=== PATIENT | female | born 2000 | race American Indian/Alaskan Native ===

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

== ENCOUNTER 2020-05-31 17:25 | Emergency (ER) | payer MEDICAID ==
[2020-05-31 18:05] VITALS: BP 122/67; PULSE 110
--- NOTE | 2020-05-31 18:23 | EDM.PDOC ---
ED HPI GENERAL MEDICAL PROBLEM - General Chief Complaint: Bite:Animal, Insect Stated Complaint: SPIDER BITE ON LT LEG Time Seen by Provider: 05/31/20 18:05 Source of Information: Reports: Patient, Old Records, RN History Limitations: Reports: No Limitations - History of Present Illness INITIAL COMMENTS - FREE TEXT/NARRATIVE: 19 yo NA female has a lesion on the lateral left leg for a few days. She has not been seen for this. Attributes it to a spider bite. Has only one of these lesions. Had something similar in the past. 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) Left Lower Leg Pain Score (Numeric/FACES): 7 - Related Data Allergies Allergy/AdvReac Type Severity Reaction Status Date / Time No Known Allergies Allergy Verified 05/31/20 18:05 Home Meds: Home Meds NK [No Known Home Meds] 07/10/17 [History] Past Medical History - Past Health History Medical/Surgical History: Denies 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: , 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 Below) 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: PID - Infectious Disease History Infectious Disease History: Reports: None Social & Family History - Family History Family Medical History: Noncontributory - Tobacco Use Smoking Status *Q: Current Every Day Smoker Years of Tobacco use: 2 Packs/Tins Daily: 0.5 - Caffeine Use Caffeine Use: Reports: Coffee, Energy Drinks, Soda - Recreational Drug Use Recreational Drug Use: No ED ROS GENERAL - Review of Systems Review Of Systems: See Below Constitutional: Reports: No Symptoms Skin: Reports: Erythema (surrounding lesion), Wound (central pustule L leg.) Neurological: Reports: No Symptoms ED EXAM, ANIMAL BITE - Physical Exam Exam: See Below Exam Limited By: No Limitations General Appearance: Alert, WD/WN, No Apparent Distress Extremities: Normal Inspection Neurological: Alert, Oriented, CN II-XII Intact, Normal Cognition, No Motor/Sensory Deficits Skin Exam: Normal Color, Warm/Dry, Other (? pustule centrally to the lateral L calf with some surrounding erythema. Suspect MRSA.) Lymphadenopathy: Bilateral: No Adenopathy Course - Vital Signs Last Recorded V/S: Last Vital Signs Temp 36.7 C 05/31/20 18:00 Pulse 110 H 05/31/20 18:00 Resp 18 05/31/20 18:00 BP 122/67 05/31/20 18:00 Pulse Ox 98 05/31/20 18:00 Departure - Departure Time of Disposition: 18:25 Disposition: Home, Self-Care 01 Condition: Good Clinical Impression: MRSA (methicillin resistant Staphylococcus aureus) infection - Discharge Information *PRESCRIPTION DRUG MONITORING PROGRAM REVIEWED*: No *COPY OF PRESCRIPTION DRUG MONITORING REPORT IN PATIENT TERE: No Instructions: MRSA Infection, Self-Care, Adult Referrals: PCP,None [Primary Care Provider] - Additional Instructions: Wash area with soap and water two or three times daily. Keep warm complexes on area. Take the TMP/SMZ every 12 hrs for a week. Recheck in the clinic with your provider in about 3 days. Sepsis Event Note (ED) - Evaluation Sepsis Screening Result: No Definite Risk - Focused Exam Vital Signs: Vital Signs Temp Pulse Resp BP Pulse Ox 05/31/20 18:00 36.7 C 110 H 18 122/67 98
== END 2020-05-31 18:33 | disposition home or self-care (01) ==
LOC: JP.ED 17:25
DX: A49.02 Methicillin resistant Staphylococcus aureus infection, unspecified site (principal); F17.210 Nicotine dependence, cigarettes, uncomplicated
CPT/HCPCS: 99283

== ENCOUNTER 2020-06-23 06:28 | Emergency (ER) | payer MEDICAID ==
[2020-06-23 06:46] VITALS: BP 148/91; PULSE 122
[2020-06-23] MEDS ORDERED: Amoxicillin/Clavulanate K 875-125 MG Tab PO ONE (06:56)
[2020-06-23] MEDS ORDERED: Bacitracin Oint 1 GM U/D Packet TOP ONE (07:36)
--- NOTE | 2020-06-23 07:43 | EDM.PDOC ---
ED HPI GENERAL MEDICAL PROBLEM - General Chief Complaint: Bite:Animal, Insect Stated Complaint: DOG BITE Time Seen by Provider: 06/23/20 07:00 Source of Information: Reports: Patient, Old Records, RN History Limitations: Reports: No Limitations - History of Present Illness INITIAL COMMENTS - FREE TEXT/NARRATIVE: 19 yo NA female presents after being bitten on the R forearm this morning by a friend's dog. She is not certain about the dog's vaccination status or if the dog has ever bitten anyone before. Her last tetanus was this past 12/2019. She has no allergies. 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 Pain Score (Numeric/FACES): 9 - Related Data Allergies Allergy/AdvReac Type Severity Reaction Status Date / Time No Known Allergies Allergy Verified 06/23/20 06:32 Home Meds: Home Meds Amoxicillin/Potassium Clav [Augmentin 875-125 Tablet] 1 each PO Q12H #5 tablet 06/23/20 [Rx] Past Medical History - Past Health History Medical/Surgical History: Denies Medical/Surgical History RN MEDICARE History: Reports: , Other (See Below) Other RN MEDICARE History: PID - Infectious Disease History Infectious Disease History: Reports: None Social & Family History - Family History Family Medical History: Noncontributory - Tobacco Use Smoking Status *Q: Current Every Day Smoker Years of Tobacco use: 2 Packs/Tins Daily: 1 - Caffeine Use Caffeine Use: Reports: Coffee, Energy Drinks, Soda, Tea - Recreational Drug Use Recreational Drug Use: Yes Drug Use in Last 12 Months: No Recreational Drug Type: Reports: Marijuana/Hashish Recreational Drug Use Frequency: Not Used In Over 6 Months ED ROS GENERAL - Review of Systems Review Of Systems: Comprehensive ROS is negative, except as noted in HPI. Constitutional: Reports: No Symptoms Musculoskeletal: Reports: No Symptoms Skin: Reports: Wound (dog bite/laceration R forearm) Neurological: Reports: No Symptoms ED EXAM, ANIMAL BITE - Physical Exam Exam: See Below Exam Limited By: No Limitations General Appearance: Alert, WD/WN, No Apparent Distress Neurological: Alert, Oriented, CN II-XII Intact, Normal Cognition, No Motor/ Sensory Deficits Psychiatric: Normal Affect, Normal Mood Skin Exam: Normal Color, Other (laceration to the lateral R forearm(5 cm) and a smaller one to the underside of her forearm(1.0 cm), abrasion/scratch to the R lateral abdomen. ) ED ANIMAL BITE PROCEDURES - Laceration/Wound Repair Right Lateral Distal Arm Lac/Wound Length In cm: 5 Appearance: Subcutaneous, Linear, Mildly Contaminated Distal NVT: Neuro & Vascular Intact, No Tendon Injury Anesthetic Type: Local Local Anesthesia - Lidocaine (Xylocaine): 1% Plain (5 ml) Local Anesthetic Volume: 5cc Skin Prep: Saline Saline Irrigation (cc's): 100 Exploration/Debridement/Repair: Wound Explored, Moderate Debridement Closed With: Sutures Suture Size: 5-0 # of Sutures: 7 Suture Type: Prolene, Interrupted, Mattress Drain Placement: No Sterile Dressing Applied: Nurse Tetanus Status Addressed: Yes Complications: No Right Anterior Distal Arm Lac/Wound Length In cm: 1 Appearance: Subcutaneous, Irregular, Mildly Contaminated Distal NVT: Neuro & Vascular Intact, No Tendon Injury Anesthetic Type: Local Local Anesthesia - Lidocaine (Xylocaine): 1% Plain Local Anesthetic Volume: 3cc Skin Prep: Saline Saline Irrigation (cc's): 20 Exploration/Debridement/Repair: Wound Explored Closed With: Sutures Suture Size: 5-0 # of Sutures: 4 Suture Type: Prolene, Interrupted, Simple Drain Placement: No Sterile Dressing Applied: Nurse Tetanus Status Addressed: Yes Complications: No Course - Vital Signs Text/Narrative:: Augmentin 875 mg po given Last Recorded V/S: Last Vital Signs Temp 36.7 C 06/23/20 06:40 Pulse 122 H 06/23/20 06:40 Resp 16 06/23/20 06:40 BP 148/91 H 06/23/20 06:40 Pulse Ox 97 06/23/20 06:40 - Orders/Labs/Meds Orders: Active Orders 24 hr Category Date Time Status Bacitracin [Bacitracin Oint 1 GM] Med 06/23/20 07:36 Once 1 dose TOP ONETIME ONE Medication Orders Bacitracin (Bacitracin Oint 1 Gm) 1 dose TOP ONETIME ONE Stop: 06/23/20 07:37 Last Admin: 06/23/20 07:36 Dose: 1 dose Documented by: [id number] Meds: Medications Generic Name Dose Route Start Last Admin Trade Name Opal PRN Reason Stop Dose Admin Bacitracin 1 dose 06/23/20 07:36 06/23/20 07:36 Bacitracin Oint 1 Gm TOP 06/23/20 07:37 1 dose ONETIME ONE Administration Discontinued Medications Generic Name Dose Route Start Last Admin Trade Name Opal PRN Reason Stop Dose Admin Amoxicillin/Clavulanate Potassium 1 tab 06/23/20 06:56 06/23/20 07:37 Augmentin 875 Mg/125 Mg PO 06/23/20 06:57 1 tab ONETIME ONE Administration Lidocaine HCl 5 ml 06/23/20 06:58 06/23/20 07:37 Xylocaine-Mpf 1% INJECT 06/23/20 06:59 5 ml ONETIME ONE Administration Departure - Departure Time of Disposition: 08:00 Disposition: Home, Self-Care 01 Condition: Good Clinical Impression: Dog bite of right forearm Qualifiers: Encounter type: initial encounter Qualified Code(s): S51.851A - Open bite of right forearm, initial encounter; W54.0XXA - Bitten by dog, initial encounter - Discharge Information *PRESCRIPTION DRUG MONITORING PROGRAM REVIEWED*: No *COPY OF PRESCRIPTION DRUG MONITORING REPORT IN PATIENT TERE: No Prescriptions: Amoxicillin/Potassium Clav [Augmentin 875-125 Tablet] 1 each PO Q12H #5 tablet Instructions: Animal Bite, Adult, [id number] Referrals: PCP,None [Primary Care Provider] - Additional Instructions: Take your Augmentin every 12 hrs with food until gone. Clean your wound twice daily with soap and water, dry, and apply antibiotic and a new dressing. Recheck status of your wound with your doctor in 2 days. Stitches out in a week. Take acetaminophen up to 1000 mg every 6 hrs as needed for pain relief. You will need to make sure your friend's dog is up to date on its rabies vaccinations. If not the dog needs to be confined for 2 weeks and if it gets ill during that interval it will need to be seen by a immigration coordinator to make sure it isn't coming down with rabies. If either the dog runs away and can't be found or it it diagnosed with rabies you will need to start the rabies vaccination series immediately so that you don't come down with rabies. Keep your wounds clean for at least 3 days. Sepsis Event Note (ED) - Evaluation Sepsis Screening Result: No Definite Risk - Focused Exam Vital Signs: Vital Signs Temp Pulse Resp BP Pulse Ox 06/23/20 06:40 36.7 C 122 H 16 148/91 H 97 - My Orders Last 24 Hours: My Active Orders 06/23/20 07:36 Bacitracin [Bacitracin Oint 1 GM] 1 dose TOP ONETIME ONE - Assessment/Plan Last 24 Hours: My Active Orders 06/23/20 07:36 Bacitracin [Bacitracin Oint 1 GM] 1 dose TOP ONETIME ONE
== END 2020-06-23 08:16 | disposition home or self-care (01) ==
LOC: JP.ED 06:28
DX: S51.851A Open bite of right forearm, initial encounter (principal); S30.811A Abrasion of abdominal wall, initial encounter; F17.210 Nicotine dependence, cigarettes, uncomplicated; W54.0XXA Bitten by dog, initial encounter
CPT/HCPCS: 12002; 99283; A9270; J2001

== ENCOUNTER 2020-12-22 08:14 | Inpatient (IN) | payer MEDICAID ==
[2020-12-22] MEDS ORDERED: Penicillin G Potassium 5 MILLUNITS in Sodium Chloride 0.9% 50 ML IV ONE (08:52)
[2020-12-22] MEDS ORDERED: Sodium Chloride 0.9% 10 ML Syringe FLUSH PRN ×2 (08:54→09:14)
[2020-12-22] MEDS ORDERED: Ondansetron 4 MG/2 ML SDV IV PRN (08:54)
[2020-12-22] MEDS ORDERED: Ropivacaine 100 ML ONE (09:12)
[2020-12-22] MEDS ORDERED: Lactated Ringers 1,000 ML IV ONE (09:13)
[2020-12-22] MEDS ORDERED: ePHEDrine 50 MG/ML SDV IVPUSH PRN ×2 (09:13→09:14)
[2020-12-22] MEDS ORDERED: diphenhydrAMINE 50 MG/ML SDV IVPUSH PRN ×2 (09:14)
[2020-12-22] MEDS ORDERED: Naloxone 0.4 MG/ML SDV IVPUSH PRN (09:14)
[2020-12-22] MEDS ORDERED: ePHEDrine 50 MG/ML SDV ONE (09:16)
--- NOTE | 2020-12-22 09:35 | PCM.LDHP ---
L&D History of Present Illness - General Date of Service: 12/22/20 Admit Problem/Dx: Patient Status Order with Admit Dx/Problem 12/22/20 08:54 Patient Status [ADT] Routine Admission Diagnosis/Problem Admission Diagnosis/Problem Labor established Source of Information: Patient History Limitations: Reports: No Limitations - History of Present Illness Introduction:: 12/22/20 Alicia is a 20 yo here at 38 1/7 weeks with SROM at 0400 this am with spontaneous labor. Clear fluid noted. FHT's category 1. She had late care starting after 20 weeks. 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 She is dated based off of late US at 23 weeks. O pos blood type, rubella immune, GBS positive, HIV/hep C/B/RPR all non reactive. 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) : 2 Para: 1 LMP (Approximate): Other OB/BYN History: PID - Infectious Disease History Infectious Disease History: Reports: None Social & Family History - Family History Family Medical History: No Pertinent Family History - Caffeine Use Caffeine Use: Reports: Coffee, Energy Drinks, Soda, Tea H&P Review of Systems - Review of Systems: Review Of Systems: See Below General: Reports: No Symptoms HEENT: Reports: No Symptoms Pulmonary: Reports: No Symptoms Cardiovascular: Reports: No Symptoms Gastrointestinal: Reports: No Symptoms Genitourinary: Reports: No Symptoms Musculoskeletal: Reports: No Symptoms Skin: Reports: No Symptoms Psychiatric: Reports: No Symptoms Neurological: Reports: No Symptoms Hematologic/Lymphatic: Reports: No Symptoms Immunologic: Reports: No Symptoms L&D Exam - Exam Exam: See Below - Vital Signs Weight: 85.275 kg - OB Specific Contraction Intensity: Moderate to Strong Movement: Active Heart Tones: Present Heart Tones per Min: 140 Heart Rate (FHR) Variability: Moderate (6-25 bmp) Presentation: Vertex - Exam General: Alert, Oriented HEENT: PERRLA Neck: Supple Lungs: Clear to Auscultation, Normal Respiratory Effort Cardiovascular: Regular Rate, Regular Rhythm GI/Abdominal Exam: Normal Bowel Sounds, Pelvis Stable Rectal Exam: Normal Exam Genitourinary: Normal external exam, Normal bimanual exam, Cervical dilitation. No: Vaginal bleeding Back Exam: Normal Inspection, Full Range of Motion Extremities: Normal Inspection, No Pedal Edema Skin: Warm, Dry, Intact Neurological: Cranial Nerves Intact Psychiatric: Alert, Normal Affect, Normal Mood - Patient Data Lab Results Last 24 hrs: Laboratory Results - last 24 hr 12/22/20 12/22/20 12/22/20 Range/Units 08:34 08:34 08:34 Urine Color Yellow (YELLOW) Urine Appearance Cloudy A (CLEAR) Urine pH 7.0 (5.0-8.0) Ur Specific Cherry 1.025 (1.008-1.030) Urine Protein 30 H (NEGATIVE) mg/dL Urine Glucose (UA) Negative (NEGATIVE) mg/dL Urine Ketones Negative (NEGATIVE) mg/dL Urine Occult Blood Moderate H (NEGATIVE) Urine Nitrite Negative (NEGATIVE) Urine Bilirubin Negative (NEGATIVE) Urine Urobilinogen 0.2 (0.2-1.0) EU/dL Ur Leukocyte Esterase Negative (NEGATIVE) Urine RBC 10-20 H (0-5) Urine WBC 0-5 (0-5) Ur Epithelial Cells Moderate Amorphous Sediment Moderate Urine Bacteria Many Urine Mucus Not seen Urine Other See note Membrane Rupture Positive H (NEGATIVE) Urine Opiates Screen Negative (NEGATIVE) Ur Oxycodone Screen Negative (NEGATIVE) Urine Methadone Screen Negative (NEGATIVE) Ur Propoxyphene Screen Negative (NEGATIVE) Ur Barbiturates Screen Negative (NEGATIVE) Ur Tricyclics Screen Negative (NEGATIVE) Ur Phencyclidine Scrn Negative (NEGATIVE) Ur Amphetamine Screen Negative (NEGATIVE) U Methamphetamines Scrn Negative (NEGATIVE) Urine MDMA Screen Negative (NEGATIVE) U Benzodiazepines Scrn Negative (NEGATIVE) U Cocaine Metab Screen Negative (NEGATIVE) U Marijuana (THC) Screen Negative (NEGATIVE) SARS CoV-2 RNA Rapid MAXX 12/22/20 Range/Units 09:11 Urine Color (YELLOW) Urine Appearance (CLEAR) Urine pH (5.0-8.0) Ur Specific Cherry (1.008-1.030) Urine Protein (NEGATIVE) mg/dL Urine Glucose (UA) (NEGATIVE) mg/dL Urine Ketones (NEGATIVE) mg/dL Urine Occult Blood (NEGATIVE) Urine Nitrite (NEGATIVE) Urine Bilirubin (NEGATIVE) Urine Urobilinogen (0.2-1.0) EU/dL Ur Leukocyte Esterase (NEGATIVE) Urine RBC (0-5) Urine WBC (0-5) Ur Epithelial Cells Amorphous Sediment Urine Bacteria Urine Mucus Urine Other Membrane Rupture (NEGATIVE) Urine Opiates Screen (NEGATIVE) Ur Oxycodone Screen (NEGATIVE) Urine Methadone Screen (NEGATIVE) Ur Propoxyphene Screen (NEGATIVE) Ur Barbiturates Screen (NEGATIVE) Ur Tricyclics Screen (NEGATIVE) Ur Phencyclidine Scrn (NEGATIVE) Ur Amphetamine Screen (NEGATIVE) U Methamphetamines Scrn (NEGATIVE) Urine MDMA Screen (NEGATIVE) U Benzodiazepines Scrn (NEGATIVE) U Cocaine Metab Screen (NEGATIVE) U Marijuana (THC) Screen (NEGATIVE) SARS CoV-2 RNA Rapid MAXX Negative - Problem List (1) Term SNOMED Code(s): 47813309 ICD Code: Z34.90 - ENCNTR FOR SUPRVSN OF NORMAL , UNSP, UNSP TRIMESTER Status: Acute Current Visit: Yes (2) SROM (spontaneous rupture of membranes) SNOMED Code(s): 341164005 ICD Code: PCS7040 - Status: Acute Current Visit: Yes (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 SNOMED Code(s): 28608308 ICD Code: O99.320 - DRUG USE COMPLICATING , UNSPECIFIED TRIMESTER; F19.10 - OTHER PSYCHOACTIVE SUBSTANCE ABUSE, UNCOMPLICATED Status: Acute Current Visit: Yes (4) Alcohol abuse affecting SNOMED Code(s): 32045608 ICD Code: O99.310 - ALCOHOL USE COMPLICATING , UNSPECIFIED TRIMESTER; F10.10 - ALCOHOL ABUSE, UNCOMPLICATED Status: Acute Current Visit: Yes (5) Positive GBS test SNOMED Code(s): 893044264, 307052030 ICD Code: B95.1 - STREPTOCOCCUS, GROUP B, CAUSING DISEASES CLASSD ELSWHR Status: Acute Current Visit: Yes (6) care insufficient SNOMED Code(s): 3727551020123 ICD Code: O09.30 - SUPRVSN OF PREG W INSUFFICIENT ANTENAT CARE, UNSP TRIMESTER Status: Acute Current Visit: Yes Problem List Initiated/Reviewed/Updated: Yes Orders Last 24hrs: Active Orders 24 hr Category Date Time Status Patient Status [ADT] Routine ADT 12/22/20 08:54 Active Communication Order [RC] ASDIRECTED Care 12/22/20 08:54 Active Communication Order [RC] ASDIRECTED Care 12/22/20 09:14 Active Communication Order [RC] ROUTINE Care 12/22/20 09:15 Active Communication Order [RC] ROUTINE Care 12/22/20 09:15 Active Communication Order [RC] ROUTINE Care 12/22/20 09:15 Active Heart Tones [RC] PER UNIT ROUTINE Care 12/22/20 08:54 Active Insert Urinary Catheter [OM.PC] ASDIRECTED Care 12/22/20 09:15 Ordered Local Anesthetic Infusion Pump [RC] ASDIRECTED Care 12/22/20 09:14 Active Notify Provider Vital Signs [RC] PRN Care 12/22/20 08:55 Active Notify Provider [RC] PRN Care 12/22/20 08:54 Active OB Check [OM.PC] Click to Edit Care 12/22/20 08:23 Ordered Oxygen Therapy [RC] ASDIRECTED Care 12/22/20 09:15 Active PCEA Epidural [RC] ASDIRECTED Care 12/22/20 09:14 Active PCEA Epidural [RC] ASDIRECTED Care 12/22/20 09:14 Active PCEA Epidural [RC] ASDIRECTED Care 12/22/20 09:15 Active PCEA Epidural [RC] ASDIRECTED Care 12/22/20 09:16 Active Peripheral IV Care [RC] . DIRECTED Care 12/22/20 09:16 Active Pulse Oximetry [RC] ASDIRECTED Care 12/22/20 09:15 Active Up ad Bonny [RC] ASDIRECTED Care 12/22/20 08:54 Active Urinary Catheter Assessment [RC] ASDIRECTED Care 12/22/20 09:14 Active VTE/DVT Education [RC] Click to Edit Care 12/22/20 08:55 Active Vital Signs [RC] PER UNIT ROUTINE Care 12/22/20 08:54 Active Vital Signs [RC] PER UNIT ROUTINE Care 12/22/20 09:15 Active Regular Diet [DIET] Diet 12/22/20 Breakfast Active Blood Alcohol [ETHANOL BLOOD MEDICAL] [CHEM] Stat Lab 12/22/20 09:19 Ordered CBC W/O DIFF,HEMOGRAM [HEME] Routine Lab 12/22/20 08:56 Ordered COMP. DRUG SCR, UMBIL.CORD Urgent Lab 12/22/20 09:11 Ordered Lactated Ringers [Ringers, Lactated] 1,000 ml Med 12/22/20 09:13 Active IV .BOLUS Naloxone [Narcan] Med 12/22/20 09:14 Active 0.1 mg IVPUSH ASDIRECTED PRN Ondansetron [Zofran] Med 12/22/20 08:54 Active 4 mg IV Q4H PRN Sodium Chloride 0.9% [Saline Flush] Med 12/22/20 08:54 Active 10 ml FLUSH ASDIRECTED PRN diphenhydrAMINE [Benadryl] Med 12/22/20 09:14 Active 25 mg IVPUSH Q6H PRN diphenhydrAMINE [Benadryl] Med 12/22/20 09:14 Active 50 mg IVPUSH Q6H PRN ePHEDrine [ePHEDrine sulfate] Med 12/22/20 09:13 Active 10 mg IVPUSH ASDIRECTED PRN DVT/VTE Prophylaxis Reflex [OM.PC] Routine Oth 12/22/20 08:54 Ordered Epidural Catheter Management [OM.PC] Routine Oth 12/22/20 09:15 Ordered Epidural Catheter Management [OM.PC] Urgent Oth 12/22/20 09:14 Ordered Peripheral IV Insertion Pediatric [OM.PC] Routine Oth 12/22/20 09:15 Ordered Saline Lock Insert [OM.PC] Routine Oth 12/22/20 08:54 Ordered Resuscitation Status Routine Resus Stat 12/22/20 08:54 Ordered Medication Orders Diphenhydramine HCl (Diphenhydramine 50 Mg/Ml Sdv) 25 mg IVPUSH Q6H PRN PRN Reason: Itching Diphenhydramine HCl (Diphenhydramine 50 Mg/Ml Sdv) 50 mg IVPUSH Q6H PRN PRN Reason: Itching Ephedrine Sulfate (Ephedrine 50 Mg/Ml Sdv) 10 mg IVPUSH ASDIRECTED PRN PRN Reason: Hypotension Lactated Ringer's (Ringers, Lactated) 1,000 mls @ 999 mls/hr IV .BOLUS ONE Stop: 12/22/20 10:13 Naloxone HCl (Naloxone 0.4 Mg/Ml Sdv) 0.1 mg IVPUSH ASDIRECTED PRN PRN Reason: Oversedation Ondansetron HCl (Ondansetron 4 Mg/2 Ml Sdv) 4 mg IV Q4H PRN PRN Reason: Nausea/Vomiting Sodium Chloride (Sodium Chloride 0.9% 10 Ml Syringe) 10 ml FLUSH ASDIRECTED PRN PRN Reason: Keep Vein Open Assessment/Plan Comment:: 12/22/20 Assessment: SROM of clear fluid 0400 today, spontaneous labor to follow GBS positive Drug and alcohol abuse in Late care 38 10/08 Hx of vaginal O pos blood type Hgb 8.5 Plan: Anticipate Cord will be sent for drug testing Epidural SS consult
[2020-12-22] MEDS ORDERED: Lactated Ringers 1,000 ML IV SCH (11:15)
[2020-12-22] MEDS ORDERED: Misoprostol 200 MCG Tab PO PRN (11:45)
[2020-12-22] MEDS ORDERED: Witch Hazel Medicated Pads 100/Jar TOP PRN (12:18)
[2020-12-22] MEDS ORDERED: Benzocaine 20% Top Spray 56 GM Bottle TOP PRN (12:18)
[2020-12-22] MEDS ORDERED: Lanolin 100% Cream 40 GM Tube TOP PRN (12:18)
[2020-12-22] MEDS ORDERED: Docusate Sodium 100 MG Cap PO PRN (12:18)
[2020-12-22] MEDS ORDERED: Acetaminophen 325 MG Tab, 50 Tab Bulk Bottle PO PRN (12:20)
[2020-12-22] MEDS ORDERED: Ibuprofen 200 MG Tab, 24 Tab Bulk Bottle PO PRN (12:20)
--- NOTE | 2020-12-22 12:28 | ANES ---
DATE OF SERVICE: 12/22/2020 TIME: 914. INDICATIONS: I was called to the Labor and Delivery Unit to evaluate Ms. Lau for a labor epidural. She is approximately 5 cm to 6 cm, multip, and is in active labor. Risks and benefits of the procedure were explained to the patient. She wished to proceed with labor epidural. TECHNIQUE: She was placed in a sitting position. Her back was prepped x3 with Betadine, 1% lidocaine skin local was used. The epidural was placed at L3-4 using a 17-gauge Tuohy needle in loss of resistance technique. The epidural had very good feel throughout, and the epidural space was easily identified. There was negative CSF, negative blood, and negative paresthesias noted. Therefore, a catheter was threaded to 13 cm at the skin. A 1.5% lidocaine test dose was given. This test dose was negative. The test dose also had epinephrine in it. The catheter was then secured with Tegaderm and tape, and the patient was placed in a supine position. A 10 mL bolus of 0.2% ropivacaine was given. This bolus had very good relief. Her vital signs remained stable. 0.2% ropivacaine drip was started at 10 mL/h. She tolerated procedure very nicely. Her vital signs remained stable throughout the procedure. Nurse was with me for the entire procedure. There were no anesthesia complications noted, and we will continue to monitor her throughout her labor and delivery. Catrachito Torres CRNA /[id number]
--- NOTE | 2020-12-22 13:05 | PCM.DEL ---
L & D Note - General Info Date of Service: 12/22/20 Mother's Due Date: [birth year]04[birth year] - Delivery Note Labor: Spontaneous Delivery Outcome: Livebirth Infant Delivery Method: Spontaneous Vaginal Delivery-Single Infant Delivery Mode: Spontaneous Presentation: Left Occiput Anterior (FADI) Nuchal Cord: None Anesthesia Type: Epidural Amniotic Fluid Description: Clear Episiotomy Type: None Laceration: None Placenta: Intact, Spontaneous Cord: 3 Vessels Estimated Blood Loss: 250 Resuscitation Needed: No : Stimulated, Warmed Provider: Gloria Sam Score 1 min: 9 Score 5 min: 9 Second Stage Interventions: Reports: Second Nurse Assessed Progress of Descent, Second Nurse Reviewed Contraction Pattern, Second Nurse Reviewed Heart Tones, Laboring Down, Pushing Effectively, Pushing, McRobert's Position Delivery Comments (Free Text/Narrative):: 12/22/20 20 yo G2 now P2 came in today after SROM with labor this morning. She did not receive sufficient care and did have drug and alcohol abuse in . She progressed nicely on her own and received an epidural for anesthesia. Category 1 tracing, early decelerations noted. She pushed briefly and delivered a male at 1155. He delivered the head in straight OA position. She had some difficulty getting the head completely out but with change of position his head delivered and he restituted into FADI position. There was no shoulder dystocia although with the change in position there was a pop or click like noise, unsure if this was mom's pubic bone or baby's shoulder coming through the pubic bone. He has good arm tone and there is no crepitus in the clavicles. He was placed on mothers chest and delayed cord clamping was complete. He cried spontaneously. The placenta delivered shiny Mcmillan intact with a 3 vessel cord. Pitocin given IV for third stage management, fundus firm. Perineum intact, no cervical or vaginal lacerations. EBL 250 ml. Cord was sent for drug testing. Apgars 9, 9. Weight 8 lb 5 oz. Baby skin to skin at breast. Stages of labor: 1: 9652-3728 2: 0296-1208 3: 2695-5997 - General Info Date of Service: 12/22/20 Functional Status: Reports: Pain Controlled - Review of Systems General: Reports: No Symptoms HEENT: Reports: No Symptoms Pulmonary: Reports: No Symptoms Cardiovascular: Reports: No Symptoms Gastrointestinal: Reports: No Symptoms Genitourinary: Reports: No Symptoms Musculoskeletal: Reports: No Symptoms Skin: Reports: No Symptoms Neurological: Reports: No Symptoms Psychiatric: Reports: No Symptoms - Patient Data Vitals - Most Recent: Last Vital Signs Temp 36.7 C 12/22/20 09:00 Pulse 75 12/22/20 10:20 Resp 16 12/22/20 10:20 BP 98/30 L 12/22/20 10:20 Pulse Ox 99 12/22/20 10:20 Weight - Most Recent: 85.275 kg I&O - Last 24 Hours: Intake & Output 12/21/20 12/22/20 12/22/20 22:59 06:59 14:59 Intake Total 1997 Output Total 300 Balance 1698 Lab Results Last 24 Hours: Laboratory Results - last 24 hr 12/22/20 12/22/20 12/22/20 Range/Units 08:34 08:34 08:34 WBC (4.5-11.0) K/uL RBC (3.30-5.50) M/uL Hgb (12.0-15.0) g/dL Hct (36.0-48.0) % MCV (80-98) fL MCH (27-31) pg MCHC (32-36) % Plt Count (150-400) K/uL Urine Color Yellow (YELLOW) Urine Appearance Cloudy A (CLEAR) Urine pH 7.0 (5.0-8.0) Ur Specific Dag[place] 1.025 (1.008-1.030) Urine Protein 30 H (NEGATIVE) mg/dL Urine Glucose (UA) Negative (NEGATIVE) mg/dL Urine Ketones Negative (NEGATIVE) mg/dL Urine Occult Blood Moderate H (NEGATIVE) Urine Nitrite Negative (NEGATIVE) Urine Bilirubin Negative (NEGATIVE) Urine Urobilinogen 0.2 (0.2-1.0) EU/dL Ur Leukocyte Esterase Negative (NEGATIVE) Urine RBC 10-20 H (0-5) Urine WBC 0-5 (0-5) Ur Epithelial Cells Moderate Amorphous Sediment Moderate Urine Bacteria Many Urine Mucus Not seen Urine Other See note Membrane Rupture Positive H (NEGATIVE) Urine Opiates Screen Negative (NEGATIVE) Ur Oxycodone Screen Negative (NEGATIVE) Urine Methadone Screen Negative (NEGATIVE) Ur Propoxyphene Screen Negative (NEGATIVE) Ur Barbiturates Screen Negative (NEGATIVE) Ur Tricyclics Screen Negative (NEGATIVE) Ur Phencyclidine Scrn Negative (NEGATIVE) Ur Amphetamine Screen Negative (NEGATIVE) U Methamphetamines Scrn Negative (NEGATIVE) Urine MDMA Screen Negative (NEGATIVE) U Benzodiazepines Scrn Negative (NEGATIVE) U Cocaine Metab Screen Negative (NEGATIVE) U Marijuana (THC) Screen Negative (NEGATIVE) Ethyl Alcohol mg/dL SARS CoV-2 RNA Rapid MAXX 12/22/20 12/22/20 12/22/20 Range/Units 08:56 09:11 09:19 WBC 10.9 (4.5-11.0) K/uL RBC 4.55 (3.30-5.50) M/uL Hgb 8.5 L D (12.0-15.0) g/dL Hct 29.7 L (36.0-48.0) % MCV 65 L (80-98) fL MCH 19 L (27-31) pg MCHC 29 L (32-36) % Plt Count 292 (150-400) K/uL Urine Color (YELLOW) Urine Appearance (CLEAR) Urine pH (5.0-8.0) Ur Specific [place] (1.008-1.030) Urine Protein (NEGATIVE) mg/dL Urine Glucose (UA) (NEGATIVE) mg/dL Urine Ketones (NEGATIVE) mg/dL Urine Occult Blood (NEGATIVE) Urine Nitrite (NEGATIVE) Urine Bilirubin (NEGATIVE) Urine Urobilinogen (0.2-1.0) EU/dL Ur Leukocyte Esterase (NEGATIVE) Urine RBC (0-5) Urine WBC (0-5) Ur Epithelial Cells Amorphous Sediment Urine Bacteria Urine Mucus Urine Other Membrane Rupture (NEGATIVE) Urine Opiates Screen (NEGATIVE) Ur Oxycodone Screen (NEGATIVE) Urine Methadone Screen (NEGATIVE) Ur Propoxyphene Screen (NEGATIVE) Ur Barbiturates Screen (NEGATIVE) Ur Tricyclics Screen (NEGATIVE) Ur Phencyclidine Scrn (NEGATIVE) Ur Amphetamine Screen (NEGATIVE) U Methamphetamines Scrn (NEGATIVE) Urine MDMA Screen (NEGATIVE) U Benzodiazepines Scrn (NEGATIVE) U Cocaine Metab Screen (NEGATIVE) U Marijuana (THC) Screen (NEGATIVE) Ethyl Alcohol < 3 mg/dL SARS CoV-2 RNA Rapid MAXX Negative Med Orders - Current: Current Medications Acetaminophen (Acetaminophen 325 Mg Tab, 50 Tab Bulk Bottle) 325 - 650 mg PO Q4H PRN PRN Reason: Pain Benzocaine (Benzocaine 20% Top [place] 56 Gm Bottle) 0 gm TOP Q4H PRN PRN Reason: Perineal Comfort Measure Diphenhydramine HCl (Diphenhydramine 50 Mg/Ml Sdv) 25 mg IVPUSH Q6H PRN PRN Reason: Itching Diphenhydramine HCl (Diphenhydramine 50 Mg/Ml Sdv) 50 mg IVPUSH Q6H PRN PRN Reason: Itching Docusate Sodium (Docusate Sodium 100 Mg Cap) 100 mg PO BID PRN PRN Reason: Constipation Emollient Ointment (Lanolin 100% Cream 40 Gm Tube) 1 gm TOP ASDIRECTED PRN PRN Reason: Sore Nipples Ephedrine Sulfate (Ephedrine 50 Mg/Ml Sdv) 10 mg IVPUSH ASDIRECTED PRN PRN Reason: Hypotension Last Admin: 12/22/20 09:55 Dose: 10 mg Documented by: Ferrous Sulfate (Ferrous Sulfate 325 Mg Tab) 325 mg PO BID ELIZA Oxytocin/Sodium Chloride (Pitocin In Ns 20 Units/1,000 Ml) 20 unit in 1,000 mls @ 999 mls/hr IV ASDIRECTED ELIZA; Protocol Lactated Ringer's (Ringers, Lactated) 1,000 mls @ 100 mls/hr IV ASDIRECTED ELIZA Ibuprofen (Ibuprofen 200 Mg Tab, 24 Tab Bulk Bottle) 600 mg PO Q6H PRN PRN Reason: Pain Influenza Virus Vaccine (Flu Vacc [id number](6mos Up)/Pf 60 Mcg/0.5 Ml Syringe) 60 mcg IM .ONCE ONE Stop: 12/23/20 10:01 Misoprostol (Misoprostol 200 Mcg Tab) 800 mcg PO BID PRN PRN Reason: HEMORRHAGE Naloxone HCl (Naloxone 0.4 Mg/Ml Sdv) 0.1 mg IVPUSH ASDIRECTED PRN PRN Reason: Oversedation Ondansetron HCl (Ondansetron 4 Mg/2 Ml Sdv) 4 mg IV Q4H PRN PRN Reason: Nausea/Vomiting Sodium Chloride (Sodium Chloride 0.9% 10 Ml Syringe) 10 ml FLUSH ASDIRECTED PRN PRN Reason: Keep Vein Open Witch Rosemary (Witch Rosemary Medicated Pads 100/Jar) 1 pad TOP ASDIRECTED PRN PRN Reason: Hemorrhoids Discontinued Medications Ephedrine Sulfate (Ephedrine 50 Mg/Ml Sdv) Confirm Administered Dose 50 mg .ROUTE .STK-MED ONE Stop: 12/22/20 09:17 Penicillin G Potassium 5 (millunits/ Sodium Chloride) 50 mls @ 100 mls/hr IV ONETIME ONE Stop: 12/22/20 09:21 Last Admin: 12/22/20 09:07 Dose: 100 mls/hr Documented by: Lactated Ringer's (Ringers, Lactated) 1,000 mls @ 999 mls/hr IV .BOLUS ONE Stop: 12/22/20 10:13 Last Admin: 12/22/20 08:55 Dose: 999 mls/hr Documented by: Ropivacaine (Naropin 0.2%) Confirm Administered Dose 100 mls @ as directed .ROUTE .STK-MED ONE Stop: 12/22/20 09:13 - Exam General: Alert, Oriented HEENT: Pupils Equal, Pupils Reactive Neck: Supple Lungs: Clear to Auscultation, Normal Respiratory Effort Cardiovascular: Regular Rate, Regular Rhythm GI/Abdominal Exam: Normal Bowel Sounds, No Distention, No Mass, Pelvis Stable (Female) Exam: Normal External Exam, Enlarged Uterus, Vaginal Bleeding Back Exam: Normal Inspection, Full Range of Motion Extremities: Normal Inspection, Normal Range of Motion, Non-Tender, No Pedal Edema Skin: Warm, Dry, Intact Neurological: No New Focal Deficit Psy/Mental Status: Alert, Normal Affect, Normal Mood - Problem List & Annotations (1) Term SNOMED Code(s): 91299218 Code(s): Z34.90 - ENCNTR FOR SUPRVSN OF NORMAL , UNSP, UNSP TRIMESTER Status: Acute Current Visit: Yes (2) SROM (spontaneous rupture of membranes) SNOMED Code(s): 336156068 Code(s): WBF0230 - Status: Acute Current Visit: Yes (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 SNOMED Code(s): 44803330 Code(s): O99.320 - DRUG USE COMPLICATING , UNSPECIFIED TRIMESTER; F19.10 - OTHER PSYCHOACTIVE SUBSTANCE ABUSE, UNCOMPLICATED Status: Acute Current Visit: Yes (4) Alcohol abuse affecting SNOMED Code(s): 63285956 Code(s): O99.310 - ALCOHOL USE COMPLICATING , UNSPECIFIED TRIMESTER; F10.10 - ALCOHOL ABUSE, UNCOMPLICATED Status: Acute Current Visit: Yes (5) Positive GBS test SNOMED Code(s): 490028481, 557249460 Code(s): B95.1 - STREPTOCOCCUS, GROUP B, CAUSING DISEASES CLASSD ELSWHR Status: Acute Current Visit: Yes (6) care insufficient SNOMED Code(s): 2789020821976 Code(s): O09.30 - SUPRVSN OF PREG W INSUFFICIENT ANTENAT CARE, UNSP TRIMESTER Status: Acute Current Visit: Yes (7) Normal vaginal delivery SNOMED Code(s): 94264251, 724610427 Code(s): O80 - ENCOUNTER FOR FULL-TERM UNCOMPLICATED DELIVERY Status: Acute Current Visit: Yes - Problem List Review Problem List Initiated/Reviewed/Updated: Yes - My Orders Last 24 Hours: My Active Orders 12/22/20 Breakfast Regular Diet [DIET] 12/22/20 08:23 OB Check [OM.PC] Click to Edit 12/22/20 08:54 Patient Status [ADT] Routine Communication Order [RC] ASDIRECTED Heart Tones [RC] PER UNIT ROUTINE Notify Provider [RC] PRN Up ad Bonny [RC] ASDIRECTED Ondansetron [Zofran] 4 mg IV Q4H PRN Sodium Chloride 0.9% [Saline Flush] 10 ml FLUSH ASDIRECTED PRN DVT/VTE Prophylaxis Reflex [OM.PC] Routine Saline Lock Insert [OM.PC] Routine Resuscitation Status Routine 12/22/20 08:55 Notify Provider Vital Signs [RC] PRN VTE/DVT Education [RC] Click to Edit 12/22/20 09:13 ePHEDrine [ePHEDrine sulfate] 10 mg IVPUSH ASDIRECTED PRN 12/22/20 09:14 Communication Order [RC] ASDIRECTED PCEA Epidural [RC] ASDIRECTED Urinary Catheter Assessment [RC] ASDIRECTED Epidural Catheter Management [OM.PC] Urgent 12/22/20 09:15 Insert Urinary Catheter [OM.PC] ASDIRECTED 12/22/20 09:45 Oxytocin/Normal Saline [Pitocin in NS 20 Units/1,000 ML] 20 unit in 1,000 ml IV ASDIRECTED 12/22/20 10:38 Influenza Vaccine Charge [RC] .DISCHARGE 12/22/20 11:15 Lactated Ringers [Ringers, Lactated] 1,000 ml IV ASDIRECTED 12/22/20 11:45 miSOPROStoL [Cytotec] 800 mcg PO BID PRN 12/22/20 12:18 Patient Status [ADT] Routine Vital Signs [RC] PFP Consult to Case Management/Band Singer [CONS] Routine Consult to General Agent [CONS] Routine Benzocaine [[id number] 20% [place]] See Dose Instructions TOP Q4H PRN Docusate Sodium [Colace] 100 mg PO BID PRN Lanolin [Lansinoh HPA] 1 gm TOP ASDIRECTED PRN witch Rosemary [Tucks] 1 pad TOP ASDIRECTED PRN Assess Lochia [WOMSER] Per Unit Routine Assess Uterine Involution [WOMSER] Per Unit Routine 12/22/20 12:19 Ice Therapy [OM.PC] Per Unit Routine Perineal Care [OM.PC] Per Unit Routine 12/22/20 12:20 Acetaminophen [Tylenol Bulk Bottle] 325 - 650 mg PO Q4H PRN Ibuprofen [Motrin Bulk Bottle] 600 mg PO Q6H PRN 12/22/20 21:00 Ferrous Sulfate 325 mg PO BID 12/23/20 05:11 CBC WITH AUTO DIFF [HEME] AM 12/23/20 10:00 Flu Vacc [id number](6Mos Up)/Pf [Fluzone Quad 7290-9494 Syringe] 60 mcg IM .ONCE ONE - Assessment Assessment:: 12/22/20 with at 38 1/7 weeks Drug and alcohol abuse in FF, bleeding light, perineum intact Starting hgb 8.5 with EBL 250 ml Plans to breastfeed and supplement Negative drug screen today - Plan Plan:: 12/22/20 Assessment: SROM of clear fluid 0400 today, spontaneous labor to follow GBS positive Drug and alcohol abuse in Late care 38 1/7 Hx of vaginal O pos blood type Hgb 8.5 Plan: Anticipate Cord will be sent for drug testing Epidural SS consult 12/22/20 Routine cares 24-48 hour stay support SS consult placed Iron tablets BID
[2020-12-22] MEDS: Ferrous Sulfate 325 MG Tab PO SCH (20:54)
[2020-12-23] MEDS: Ferrous Sulfate 325 MG Tab PO SCH ×2 (08:25→22:15)
--- NOTE | 2020-12-23 08:27 | PCM.PNPP ---
- General Info Date of Service: 12/23/20 Functional Status: Reports: Pain Controlled, Tolerating Diet, Ambulating - Review of Systems General: Reports: No Symptoms. Denies: Weakness, Fatigue HEENT: Reports: No Symptoms Pulmonary: Reports: No Symptoms Cardiovascular: Reports: No Symptoms Gastrointestinal: Reports: No Symptoms Genitourinary: Reports: No Symptoms Musculoskeletal: Reports: No Symptoms Skin: Reports: No Symptoms Neurological: Reports: No Symptoms Psychiatric: Reports: No Symptoms - General Info Date of Service: 12/23/20 - Patient Data Vital Signs - Most Recent: Last Vital Signs Temp 35.9 C L 12/23/20 03:27 Pulse 75 12/23/20 03:27 Resp 16 12/23/20 03:27 BP 102/65 12/23/20 03:27 Pulse Ox 99 12/23/20 03:27 Weight - Most Recent: 85.275 kg Lab Results - Last 24 Hours: Laboratory Results - last 24 hr 12/22/20 12/22/20 12/22/20 Range/Units 08:34 08:34 08:34 WBC (4.5-11.0) K/uL RBC (3.30-5.50) M/uL Hgb (12.0-15.0) g/dL Hct (36.0-48.0) % MCV (80-98) fL MCH (27-31) pg MCHC (32-36) % Plt Count (150-400) K/uL Neut % (Auto) (36-66) % Lymph % (Auto) (24-44) % Cobb % (Auto) (2-6) % Eos % (Auto) (2-4) % Baso % (Auto) (0-1) % Urine Color Yellow (YELLOW) Urine Appearance Cloudy A (CLEAR) Urine pH 7.0 (5.0-8.0) Ur Specific [place] 1.025 (1.008-1.030) Urine Protein 30 H (NEGATIVE) mg/dL Urine Glucose (UA) Negative (NEGATIVE) mg/dL Urine Ketones Negative (NEGATIVE) mg/dL Urine Occult Blood Moderate H (NEGATIVE) Urine Nitrite Negative (NEGATIVE) Urine Bilirubin Negative (NEGATIVE) Urine Urobilinogen 0.2 (0.2-1.0) EU/dL Ur Leukocyte Esterase Negative (NEGATIVE) Urine RBC 10-20 H (0-5) Urine WBC 0-5 (0-5) Ur Epithelial Cells Moderate Amorphous Sediment Moderate Urine Bacteria Many Urine Mucus Not seen Urine Other See note Membrane Rupture Positive H (NEGATIVE) Urine Opiates Screen Negative (NEGATIVE) Ur Oxycodone Screen Negative (NEGATIVE) Urine Methadone Screen Negative (NEGATIVE) Ur Propoxyphene Screen Negative (NEGATIVE) Ur Barbiturates Screen Negative (NEGATIVE) Ur Tricyclics Screen Negative (NEGATIVE) Ur Phencyclidine Scrn Negative (NEGATIVE) Ur Amphetamine Screen Negative (NEGATIVE) U Methamphetamines Scrn Negative (NEGATIVE) Urine MDMA Screen Negative (NEGATIVE) U Benzodiazepines Scrn Negative (NEGATIVE) U Cocaine Metab Screen Negative (NEGATIVE) U Marijuana (THC) Screen Negative (NEGATIVE) Ethyl Alcohol mg/dL SARS CoV-2 RNA Rapid MAXX 12/22/20 12/22/20 12/22/20 Range/Units 08:56 09:11 09:19 WBC 10.9 (4.5-11.0) K/uL RBC 4.55 (3.30-5.50) M/uL Hgb 8.5 L D (12.0-15.0) g/dL Hct 29.7 L (36.0-48.0) % MCV 65 L (80-98) fL MCH 19 L (27-31) pg MCHC 29 L (32-36) % Plt Count 292 (150-400) K/uL Neut % (Auto) (36-66) % Lymph % (Auto) (24-44) % Cobb % (Auto) (2-6) % Eos % (Auto) (2-4) % Baso % (Auto) (0-1) % Urine Color (YELLOW) Urine Appearance (CLEAR) Urine pH (5.0-8.0) Ur Specific [place] (1.008-1.030) Urine Protein (NEGATIVE) mg/dL Urine Glucose (UA) (NEGATIVE) mg/dL Urine Ketones (NEGATIVE) mg/dL Urine Occult Blood (NEGATIVE) Urine Nitrite (NEGATIVE) Urine Bilirubin (NEGATIVE) Urine Urobilinogen (0.2-1.0) EU/dL Ur Leukocyte Esterase (NEGATIVE) Urine RBC (0-5) Urine WBC (0-5) Ur Epithelial Cells Amorphous Sediment Urine Bacteria Urine Mucus Urine Other Membrane Rupture (NEGATIVE) Urine Opiates Screen (NEGATIVE) Ur Oxycodone Screen (NEGATIVE) Urine Methadone Screen (NEGATIVE) Ur Propoxyphene Screen (NEGATIVE) Ur Barbiturates Screen (NEGATIVE) Ur Tricyclics Screen (NEGATIVE) Ur Phencyclidine Scrn (NEGATIVE) Ur Amphetamine Screen (NEGATIVE) U Methamphetamines Scrn (NEGATIVE) Urine MDMA Screen (NEGATIVE) U Benzodiazepines Scrn (NEGATIVE) U Cocaine Metab Screen (NEGATIVE) U Marijuana (THC) Screen (NEGATIVE) Ethyl Alcohol < 3 mg/dL SARS CoV-2 RNA Rapid MAXX Negative 12/23/20 Range/Units 05:59 WBC 16.2 H (4.5-11.0) K/uL RBC 3.75 (3.30-5.50) M/uL Hgb 7.0 L (12.0-15.0) g/dL Hct 24.6 L (36.0-48.0) % MCV 66 L (80-98) fL MCH 19 L (27-31) pg MCHC 29 L (32-36) % Plt Count 239 (150-400) K/uL Neut % (Auto) 79 H (36-66) % Lymph % (Auto) 15 L (24-44) % Cobb % (Auto) 5 (2-6) % Eos % (Auto) 1 L (2-4) % Baso % (Auto) 0 (0-1) % Urine Color (YELLOW) Urine Appearance (CLEAR) Urine pH (5.0-8.0) Ur Specific [place] (1.008-1.030) Urine Protein (NEGATIVE) mg/dL Urine Glucose (UA) (NEGATIVE) mg/dL Urine Ketones (NEGATIVE) mg/dL Urine Occult Blood (NEGATIVE) Urine Nitrite (NEGATIVE) Urine Bilirubin (NEGATIVE) Urine Urobilinogen (0.2-1.0) EU/dL Ur Leukocyte Esterase (NEGATIVE) Urine RBC (0-5) Urine WBC (0-5) Ur Epithelial Cells Amorphous Sediment Urine Bacteria Urine Mucus Urine Other Membrane Rupture (NEGATIVE) Urine Opiates Screen (NEGATIVE) Ur Oxycodone Screen (NEGATIVE) Urine Methadone Screen (NEGATIVE) Ur Propoxyphene Screen (NEGATIVE) Ur Barbiturates Screen (NEGATIVE) Ur Tricyclics Screen (NEGATIVE) Ur Phencyclidine Scrn (NEGATIVE) Ur Amphetamine Screen (NEGATIVE) U Methamphetamines Scrn (NEGATIVE) Urine MDMA Screen (NEGATIVE) U Benzodiazepines Scrn (NEGATIVE) U Cocaine Metab Screen (NEGATIVE) U Marijuana (THC) Screen (NEGATIVE) Ethyl Alcohol mg/dL SARS CoV-2 RNA Rapid MAXX Med Orders - Current: Current Medications Acetaminophen (Acetaminophen 325 Mg Tab, 50 Tab Bulk Bottle) 325 - 650 mg PO Q4H PRN PRN Reason: Pain Last Admin: 12/22/20 15:25 Dose: 1 bottle Documented by: Benzocaine (Benzocaine 20% Top [place] 56 Gm Bottle) 0 gm TOP Q4H PRN PRN Reason: Perineal Comfort Measure Last Admin: 12/22/20 15:25 Dose: 1 applic Documented by: Diphenhydramine HCl (Diphenhydramine 50 Mg/Ml Sdv) 25 mg IVPUSH Q6H PRN PRN Reason: Itching Diphenhydramine HCl (Diphenhydramine 50 Mg/Ml Sdv) 50 mg IVPUSH Q6H PRN PRN Reason: Itching Docusate Sodium (Docusate Sodium 100 Mg Cap) 100 mg PO BID PRN PRN Reason: Constipation Emollient Ointment (Lanolin 100% Cream 40 Gm Tube) 1 gm TOP ASDIRECTED PRN PRN Reason: Sore Nipples Last Admin: 12/22/20 15:24 Dose: 1 applic Documented by: Ferrous Sulfate (Ferrous Sulfate 325 Mg Tab) 325 mg PO BID ELIZA Last Admin: 12/22/20 20:54 Dose: 325 mg Documented by: Ibuprofen (Ibuprofen 200 Mg Tab, 24 Tab Bulk Bottle) 600 mg PO Q6H PRN PRN Reason: Pain Last Admin: 12/22/20 15:24 Dose: 1 bottle Documented by: Influenza Virus Vaccine (Flu Vacc [id number](6mos Up)/Pf 60 Mcg/0.5 Ml Syringe) 60 mcg IM .ONCE ONE Stop: 12/23/20 10:01 Misoprostol (Misoprostol 200 Mcg Tab) 800 mcg PO BID PRN PRN Reason: HEMORRHAGE Naloxone HCl (Naloxone 0.4 Mg/Ml Sdv) 0.1 mg IVPUSH ASDIRECTED PRN PRN Reason: Oversedation Ondansetron HCl (Ondansetron 4 Mg/2 Ml Sdv) 4 mg IV Q4H PRN PRN Reason: Nausea/Vomiting Sodium Chloride (Sodium Chloride 0.9% 10 Ml Syringe) 10 ml FLUSH ASDIRECTED PRN PRN Reason: Keep Vein Open Witch Rosemary (Witch Rosemary Medicated Pads 100/Jar) 1 pad TOP ASDIRECTED PRN PRN Reason: Hemorrhoids Last Admin: 12/22/20 15:24 Dose: 1 pad Documented by: Discontinued Medications Ephedrine Sulfate (Ephedrine 50 Mg/Ml Sdv) 10 mg IVPUSH ASDIRECTED PRN PRN Reason: Hypotension Last Admin: 12/22/20 09:55 Dose: 10 mg Documented by: Ephedrine Sulfate (Ephedrine 50 Mg/Ml Sdv) Confirm Administered Dose 50 mg .ROUTE .STK-MED ONE Stop: 12/22/20 09:17 Last Admin: 12/22/20 13:34 Dose: Not Given Documented by: Penicillin G Potassium 5 (millunits/ Sodium Chloride) 50 mls @ 100 mls/hr IV ONETIME ONE Stop: 12/22/20 09:21 Last Admin: 12/22/20 09:07 Dose: 100 mls/hr Documented by: Lactated Ringer's (Ringers, Lactated) 1,000 mls @ 999 mls/hr IV .BOLUS ONE Stop: 12/22/20 10:13 Last Admin: 12/22/20 08:55 Dose: 999 mls/hr Documented by: Ropivacaine (Naropin 0.2%) Confirm Administered Dose 100 mls @ as directed .ROUTE .STK-MED ONE Stop: 12/22/20 09:13 Oxytocin/Sodium Chloride (Pitocin In Ns 20 Units/1,000 Ml) 20 unit in 1,000 mls @ 999 mls/hr IV ASDIRECTED ELIZA; Protocol Last Titration: 12/22/20 12:57 Dose: 125 mls/hr, 125 mls/hr Documented by: Lactated Ringer's (Ringers, Lactated) 1,000 mls @ 100 mls/hr IV ASDIRECTED ELIZA - Infant Interaction Disposition, : in Room with Family Infant Interaction: Other (see below) (needed to be told to feed baby when crying overnight) Feeding: Bottle Fed Support Person: Significant Other - Recovery Exam Fundal Tone: Firm Fundal Level: 1 Fingerbreadths Below Umbilicus Fundal Placement: Midline Lochia Amount: Moderate Lochia Color: Rubra/Red Perineum Description: Intact, Minimal Bruising/Swelling Episiotomy/Laceration: None Bladder Status: Voiding Urinary Elimination: Voided - Exam General: Alert, Oriented HEENT: Pupils Equal, Pupils Reactive, Mucous Membr. Moist/[place] Neck: Supple Lungs: Clear to Auscultation, Normal Respiratory Effort Cardiovascular: Regular Rate, Regular Rhythm GI/Abdominal Exam: Normal Bowel Sounds, Soft, Non-Tender, No Distention, Pelvis Stable Extremities: Normal Inspection, Normal Range of Motion, Non-Tender, No Pedal Edema, Normal Capillary Refill Skin: Warm, Dry, Intact Neurological: No New Focal Deficit Psy/Mental Status: Alert, Normal Affect, Normal Mood - Problem List & Annotations (1) Term SNOMED Code(s): 64151744 Code(s): Z34.90 - ENCNTR FOR SUPRVSN OF NORMAL , UNSP, UNSP TRIMESTER Status: Acute Current Visit: Yes (2) SROM (spontaneous rupture of membranes) SNOMED Code(s): 891457837 Code(s): FPC5811 - Status: Acute Current Visit: Yes (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 SNOMED Code(s): 61509564 Code(s): O99.320 - DRUG USE COMPLICATING , UNSPECIFIED TRIMESTER; F19.10 - OTHER PSYCHOACTIVE SUBSTANCE ABUSE, UNCOMPLICATED Status: Acute Current Visit: Yes Qualifiers: Trimester: third trimester Qualified Code(s): O99.323 - Drug use complicating , third trimester; F19.10 - Other psychoactive substance abuse, uncomplicated (4) Alcohol abuse affecting SNOMED Code(s): 26494094 Code(s): O99.310 - ALCOHOL USE COMPLICATING , UNSPECIFIED TRIMESTER; F10.10 - ALCOHOL ABUSE, UNCOMPLICATED Status: Acute Current Visit: Yes Qualifiers: Trimester: unspecified trimester Qualified Code(s): O99.310 - Alcohol use complicating , unspecified trimester; F10.10 - Alcohol abuse, uncomplicated (5) Positive GBS test SNOMED Code(s): 626186692, 384601552 Code(s): B95.1 - STREPTOCOCCUS, GROUP B, CA[facility]ING [facility] Status: Acute Current Visit: Yes (6) care insufficient SNOMED Code(s): 6810009346016 Code(s): O09.30 - SUPRVSN OF PREG W INSUFFICIENT ANTENAT CARE, UNSP TRIMESTER Status: Acute Current Visit: Yes (7) Normal vaginal delivery SNOMED Code(s): 48048959, 809886527 Code(s): O80 - ENCOUNTER FOR FULL-TERM UNCOMPLICATED DELIVERY Status: Acute Current Visit: Yes - Problem List Review Problem List Initiated/Reviewed/Updated: Yes - My Orders Last 24 Hours: My Active Orders 12/22/20 Breakfast Regular Diet [DIET] 12/22/20 08:23 OB Check [OM.PC] Click To Edit 12/22/20 08:54 Patient Status [ADT] Routine Notify Provider [RC] PRN Up ad Bonny [RC] ASDIRECTED Ondansetron [Zofran] 4 mg IV Q4H PRN Sodium Chloride 0.9% [Saline Flush] 10 ml FLUSH ASDIRECTED PRN DVT/VTE Prophylaxis Reflex [OM.PC] Routine Saline Lock Insert [OM.PC] Routine Resuscitation Status Routine 12/22/20 08:55 Notify Provider Vital Signs [RC] PRN VTE/DVT Education [RC] Click to Edit 12/22/20 09:14 Epidural Catheter Management [OM.PC] Urgent 12/22/20 09:15 Insert Urinary Catheter [OM.PC] ASDIRECTED 12/22/20 10:38 Influenza Vaccine Charge [RC] .DISCHARGE 12/22/20 11:45 miSOPROStoL [Cytotec] 800 mcg PO BID PRN 12/22/20 12:18 Patient Status [ADT] Routine Vital Signs [RC] PFP Consult to Case Management/Finishing Trimmer [CONS] Routine Consult to Industrial Waste Inspector [CONS] Routine Benzocaine [Ahic-F-Aoractq 20% [place]] See Dose Instructions TOP Q4H PRN Docusate Sodium [Colace] 100 mg PO BID PRN Lanolin [Lansinoh HPA] 1 gm TOP ASDIRECTED PRN witch Rosemary [Tucks] 1 pad TOP ASDIRECTED PRN Assess Lochia [WOMSER] Per Unit Routine Assess Uterine Involution [WOMSER] Per Unit Routine 12/22/20 12:19 Ice Therapy [OM.PC] Per Unit Routine Perineal Care [OM.PC] Per Unit Routine 12/22/20 12:20 Acetaminophen [Tylenol Bulk Bottle] 325 - 650 mg PO Q4H PRN Ibuprofen [Motrin Bulk Bottle] 600 mg PO Q6H PRN 12/22/20 21:00 Ferrous Sulfate 325 mg PO BID 12/23/20 10:00 Flu Vacc [id number](6Mos Up)/Pf [Fluzone Quad Syringe] 60 mcg IM .ONCE ONE - Assessment Assessment:: 12/22/20 with at 38 1/7 weeks Drug and alcohol abuse in FF, bleeding light, perineum intact Starting hgb 8.5 with EBL 250 ml Plans to breastfeed and supplement Negative drug screen today 12/23/20 Hgb 7.0, asymptomatic, not dizzy, AVSS, patient chronically low Bleeding light and FF Doing well PP Bottle feeding infant - Plan Plan:: 12/22/20 Assessment: SROM of clear fluid 0400 today, spontaneous labor to follow GBS positive Drug and alcohol abuse in Late care 38 1/7 Hx of vaginal O pos blood type Hgb 8.5 Plan: Anticipate Cord will be sent for drug testing Epidural SS consult 12/22/20 Routine cares 24-48 hour stay support SS consult placed Iron tablets BID 12/23/20 Routine cares Encourage and document bonding and feeding Discussed iron infusion, patient declines and states "I feel fine" SS consult is placed, waiting to hear from [facility] before any decisions made on baby discharge
[2020-12-23] MEDS ORDERED: FLU VACC QS2020-21(6MOS UP)/PF 60 MCG/0.5 ML SYRINGE IM ONE (10:00)
--- NOTE | 2020-12-24 07:33 | PCM.PNPP ---
- General Info Date of Service: 12/24/20 Functional Status: Reports: Pain Controlled - Review of Systems General: Reports: No Symptoms HEENT: Reports: No Symptoms Pulmonary: Reports: No Symptoms Cardiovascular: Reports: No Symptoms Gastrointestinal: Reports: No Symptoms Genitourinary: Reports: No Symptoms Musculoskeletal: Reports: No Symptoms Skin: Reports: No Symptoms Neurological: Reports: No Symptoms Psychiatric: Reports: No Symptoms - General Info Date of Service: 12/24/20 - Patient Data Vital Signs - Most Recent: Last Vital Signs Temp 36.1 C 12/23/20 21:33 Pulse 67 12/23/20 21:33 Resp 16 12/23/20 21:33 BP 112/77 12/23/20 21:33 Pulse Ox 99 12/23/20 21:33 Weight - Most Recent: 85.275 kg I&O - Last 24 Hours: Intake & Output 12/23/20 12/24/20 12/24/20 22:59 06:59 14:59 Intake Total 200 Balance 200 Med Orders - Current: Current Medications Acetaminophen (Acetaminophen 325 Mg Tab, 50 Tab Bulk Bottle) 325 - 650 mg PO Q4H PRN PRN Reason: Pain Last Admin: 12/22/20 15:25 Dose: 1 bottle Documented by: Benzocaine (Benzocaine 20% Top [place] 56 Gm Bottle) 0 gm TOP Q4H PRN PRN Reason: Perineal Comfort Measure Last Admin: 12/22/20 15:25 Dose: 1 applic Documented by: Diphenhydramine HCl (Diphenhydramine 50 Mg/Ml Sdv) 25 mg IVPUSH Q6H PRN PRN Reason: Itching Diphenhydramine HCl (Diphenhydramine 50 Mg/Ml Sdv) 50 mg IVPUSH Q6H PRN PRN Reason: Itching Docusate Sodium (Docusate Sodium 100 Mg Cap) 100 mg PO BID PRN PRN Reason: Constipation Emollient Ointment (Lanolin 100% Cream 40 Gm Tube) 1 gm TOP ASDIRECTED PRN PRN Reason: Sore Nipples Last Admin: 12/22/20 15:24 Dose: 1 applic Documented by: Ferrous Sulfate (Ferrous Sulfate 325 Mg Tab) 325 mg PO BID ELIZA Last Admin: 12/23/20 22:15 Dose: 325 mg Documented by: Ibuprofen (Ibuprofen 200 Mg Tab, 24 Tab Bulk Bottle) 600 mg PO Q6H PRN PRN Reason: Pain Last Admin: 12/22/20 15:24 Dose: 1 bottle Documented by: Misoprostol (Misoprostol 200 Mcg Tab) 800 mcg PO BID PRN PRN Reason: HEMORRHAGE Naloxone HCl (Naloxone 0.4 Mg/Ml Sdv) 0.1 mg IVPUSH ASDIRECTED PRN PRN Reason: Oversedation Ondansetron HCl (Ondansetron 4 Mg/2 Ml Sdv) 4 mg IV Q4H PRN PRN Reason: Nausea/Vomiting Sodium Chloride (Sodium Chloride 0.9% 10 Ml Syringe) 10 ml FLUSH ASDIRECTED PRN PRN Reason: Keep Vein Open Witch Rosemary (Witch Rosemary Medicated Pads 100/Jar) 1 pad TOP ASDIRECTED PRN PRN Reason: Hemorrhoids Last Admin: 12/22/20 15:24 Dose: 1 pad Documented by: Discontinued Medications Ephedrine Sulfate (Ephedrine 50 Mg/Ml Sdv) 10 mg IVPUSH ASDIRECTED PRN PRN Reason: Hypotension Last Admin: 12/22/20 09:55 Dose: 10 mg Documented by: Ephedrine Sulfate (Ephedrine 50 Mg/Ml Sdv) Confirm Administered Dose 50 mg .ROUTE .STK-MED ONE Stop: 12/22/20 09:17 Last Admin: 12/22/20 13:34 Dose: Not Given Documented by: Penicillin G Potassium 5 (millunits/ Sodium Chloride) 50 mls @ 100 mls/hr IV ONETIME ONE Stop: 12/22/20 09:21 Last Admin: 12/22/20 09:07 Dose: 100 mls/hr Documented by: Lactated Ringer's (Ringers, Lactated) 1,000 mls @ 999 mls/hr IV .BOLUS ONE Stop: 12/22/20 10:13 Last Admin: 12/22/20 08:55 Dose: 999 mls/hr Documented by: Ropivacaine (Naropin 0.2%) Confirm Administered Dose 100 mls @ as directed .ROUTE .STK-MED ONE Stop: 12/22/20 09:13 Oxytocin/Sodium Chloride (Pitocin In Ns 20 Units/1,000 Ml) 20 unit in 1,000 mls @ 999 mls/hr IV ASDIRECTED ELIZA; Protocol Last Titration: 12/22/20 12:57 Dose: 125 mls/hr, 125 mls/hr Documented by: Lactated Ringer's (Ringers, Lactated) 1,000 mls @ 100 mls/hr IV ASDIRECTED ELIZA Influenza Virus Vaccine (Flu Vacc [id number](6mos Up)/Pf 60 Mcg/0.5 Ml Syringe) 60 mcg IM .ONCE ONE Stop: 12/23/20 10:01 Last Admin: 12/23/20 09:52 Dose: Not Given Documented by: - Infant Interaction Disposition, : [place] in Room with Family Interaction: Holding Feeding: Bottle Fed Infant Support Person: Significant Other - Recovery Exam Fundal Tone: Firm Fundal Level: 1 Fingerbreadths Below Umbilicus Fundal Placement: Midline Lochia Amount: Small Lochia Color: Rubra/Red Perineum Description: Intact, Minimal Bruising/Swelling Episiotomy/Laceration: None Bladder Status: Voiding Urinary Elimination: Voided - Exam General: Alert, Oriented HEENT: Pupils Equal, Pupils Reactive, Mucous Membr. Moist/[place] Neck: Supple Lungs: Clear to Auscultation, Normal Respiratory Effort Cardiovascular: Regular Rate, Regular Rhythm GI/Abdominal Exam: Normal Bowel Sounds, Soft, Non-Tender, No Distention, Pelvis Stable Extremities: Normal Inspection, Normal Range of Motion, Non-Tender, No Pedal Edema, Normal Capillary Refill Skin: Warm, Dry, Intact Neurological: No New Focal Deficit Psy/Mental Status: Alert, Normal Affect, Normal Mood - Problem List & Annotations (1) Term SNOMED Code(s): 72231787 Code(s): Z34.90 - ENCNTR FOR SUPRVSN OF NORMAL , UNSP, UNSP TRIMESTER Status: Acute Current Visit: Yes (2) SROM (spontaneous rupture of membranes) SNOMED Code(s): 645201535 Code(s): FXW8669 - Status: Acute Current Visit: Yes (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 SNOMED Code(s): 89076206 Code(s): O99.320 - DRUG USE COMPLICATING , UNSPECIFIED TRIMESTER; F19.10 - OTHER PSYCHOACTIVE SUBSTANCE ABUSE, UNCOMPLICATED Status: Acute Current Visit: Yes Qualifiers: Trimester: third trimester Qualified Code(s): O99.323 - Drug use complicating , third trimester; F19.10 - Other psychoactive substance a buse, uncomplicated (4) Alcohol abuse affecting SNOMED Code(s): 91550147 Code(s): O99.310 - ALCOHOL USE COMPLICATING , UNSPECIFIED TRIMESTER; F10.10 - ALCOHOL ABUSE, UNCOMPLICATED Status: Acute Current Visit: Yes Qualifiers: Trimester: unspecified trimester Qualified Code(s): O99.310 - Alcohol use complicating , unspecified trimester; F10.10 - Alcohol abuse, uncomplicated (5) Positive GBS test SNOMED Code(s): 403169082, 541609479 Code(s): B95.1 - STREPTOCOCCUS, GROUP B, CAUSING DISEASES CLASSD [facility] Status: Acute Current Visit: Yes (6) care insufficient SNOMED Code(s): 3748563419201 Code(s): O09.30 - SUPRVSN OF PREG W INSUFFICIENT ANTENAT CARE, UNSP TRIMESTER Status: Acute Current Visit: Yes (7) Normal vaginal delivery SNOMED Code(s): 78344172, 928438590 Code(s): O80 - ENCOUNTER FOR FULL-TERM UNCOMPLICATED DELIVERY Status: Acute Current Visit: Yes - Problem List Review Problem List Initiated/Reviewed/Updated: Yes - My Orders Last 24 Hours: My Active Orders 12/23/20 08:42 Peripheral IV Discontinue [OM.PC] Routine 12/24/20 07:29 HEMOGLOBIN/HEMATOCRIT,HH [HEME] Routine - Assessment Assessment:: 12/22/20 with at 38 1/7 weeks Drug and alcohol abuse in FF, bleeding light, perineum intact Starting hgb 8.5 with EBL 250 ml Plans to breastfeed and supplement Negative drug screen today 12/23/20 Hgb 7.0, asymptomatic, not dizzy, AVSS, patient chronically low Bleeding light and FF Doing well PP Bottle feeding 12/24/20 PP period has been uneventful She denies any s/s of low hemoglobin, no dizziness or weakness AVSS Bleeding light and FF Pain controlled - Plan Plan:: 12/22/20 Assessment: SROM of clear fluid 0400 today, spontaneous labor to follow GBS positive Drug and alcohol abuse in Late care 38 1 Hx of vaginal O pos blood type Hgb 8.5 Plan: Anticipate Cord will be sent for drug testing Epidural SS consult 12/22/20 Routine cares 24-48 hour stay support SS consult placed Iron tablets BID 12/23/20 Routine cares Encourage and document bonding and feeding Discussed iron infusion, patient declines and states "I feel fine" SS consult is placed, waiting to hear from counts include [facility] beds [facility] before any decisions made on baby discharge 12/24/20 Routine cares Education done regarding warning s/s Recheck hemoglobin today Iron BID at home 6 week check in clinic Discharge home today with baby
[2020-12-24 08:21] VITALS: BP 123/55; PULSE 100
[2020-12-24] MEDS: Ferrous Sulfate 325 MG Tab PO SCH (08:38)
== END 2020-12-24 12:00 | disposition home or self-care (01) | DRG 806 ==
LOC: JP.OBCHECK 08:14 → JP.OB 09:12 → OBSVTOIN 11:55 → JP.MS 16:00
PROVIDERS: ADMIT Advanced Practice Midwife; ATTEND Advanced Practice Midwife
PROC: 10E0XZZ Delivery of Products of Conception, External Approach (ICD-10-PCS; principal; 2020-12-22)
PROC: 3E0R3BZ Introduction of Anesthetic Agent into Spinal Canal, Percutaneous Approach (ICD-10-PCS; 2020-12-22)
PROC: 00HU33Z Insertion of Infusion Device into Spinal Canal, Percutaneous Approach (ICD-10-PCS; 2020-12-22)
DX: O99.310 Alcohol use complicating pregnancy, unspecified trimester (principal); O99.323 Drug use complicating pregnancy, third trimester; Z37.0 Single live birth; O99.824 Streptococcus B carrier state complicating childbirth; Z3A.38 38 weeks gestation of pregnancy; F10.10 Alcohol abuse, uncomplicated; F19.10 Other psychoactive substance abuse, uncomplicated; Z20.822 Contact with and (suspected) exposure to COVID-19
CPT/HCPCS: 36415; 51701; 80305-QW; 80307; 81001; 84112; 85014; 85018; 85025; 85027; 99211; A9270-GY; J2540; J2590; J2795; J7120; U0002

== ENCOUNTER 2021-04-23 21:23 | Emergency (ER) | payer MEDICAID, OTHER ==
[2021-04-23 21:40] VITALS: BP 134/81; PULSE 90
[2021-04-23] MEDS ORDERED: Bacitracin Oint 1 GM U/D Packet TOP ONE (21:50)
[2021-04-23] MEDS ORDERED: Amoxicillin/Clavulanate K 875-125 MG Tab PO ONE (21:50)
--- NOTE | 2021-04-23 21:56 | EDM.PDOC ---
ED HPI GENERAL MEDICAL PROBLEM - General Chief Complaint: Bite:Animal, Insect Stated Complaint: DOG BITE THIS MORNING Time Seen by Provider: 04/23/21 21:40 Source of Information: Reports: Patient, Old Records, RN History Limitations: Reports: No Limitations - History of Present Illness INITIAL COMMENTS - FREE TEXT/NARRATIVE: 20 yo NA female presents for eval of dog bite to her L shoulder from this morning. She was told by the neighbor that the dog is vaccinated. She says her last tetanus was in the past couple of mos. 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: Reports: Other (see below) (none) Left Upper Arm Pain Score (Numeric/FACES): 4 - Related Data Allergies Allergy/AdvReac Type Severity Reaction Status Date / Time No Known Allergies Allergy Verified 04/23/21 21:39 Home Meds: Home Meds Acetaminophen [Tylenol] 650 mg PO Q4H PRN #30 tablet 12/24/20 [Rx] Ferrous Sulfate [Iron] 325 mg PO BID #60 tablet 12/24/20 [Rx] Ibuprofen [Motrin] 600 mg PO Q6H PRN #30 tab 12/24/20 [Rx] Past Medical History - Past Health History Medical/Surgical History: Denies Medical/Surgical History MEDICINE MAN History: Reports: , Other (See Below) Other MEDICINE MAN History: PID - Infectious Disease History Infectious Disease History: Reports: None Social & Family History - Family History Family Medical History: No Pertinent Family History - Tobacco Use Tobacco Use Status *Q: Heavy Tobacco User Years of Tobacco use: 2 Packs/Tins Daily: 1 - Caffeine Use Caffeine Use: Reports: Energy Drinks, Soda - Recreational Drug Use Recreational Drug Use: No ED ROS GENERAL - Review of Systems Review Of Systems: See Below Constitutional: Reports: No Symptoms Musculoskeletal: Reports: No Symptoms Skin: Reports: Wound (dog bite L shoulder) Neurological: Reports: No Symptoms ED EXAM, ANIMAL BITE - Physical Exam Exam: See Below Exam Limited By: No Limitations General Appearance: Alert, WD/WN, No Apparent Distress Extremities: Normal Inspection, Normal Range of Motion, Non-Tender, No Pedal Edema Neurological: Alert, Oriented, CN II-XII Intact, Normal Cognition, No Motor/Sensory Deficits Psychiatric: Normal Affect, Normal Mood Skin Exam: Normal Color, Other (lacerations/puncture wounds of L deltoid area. No sign of infection. ) Course - Vital Signs Text/Narrative:: Wound cleaned and dressed by RN Last Recorded V/S: Last Vital Signs Temp 36.4 C 04/23/21 21:45 Pulse 90 04/23/21 21:45 Resp 16 04/23/21 21:45 BP 134/81 04/23/21 21:45 Pulse Ox 100 04/23/21 21:45 - Orders/Labs/Meds Orders: Active Orders 24 hr Category Date Time Status Amoxicillin/Clavulanate K [Augmentin 875 MG/125 MG] Med 04/23/21 21:50 Once 1 tab PO ONETIME ONE Bacitracin [Bacitracin Oint 1 GM] Med 04/23/21 21:50 Once 1 dose TOP ONETIME ONE Departure - Departure Time of Disposition: 22:05 Disposition: Home, Self-Care 01 Condition: Good Clinical Impression: Open wound of left shoulder due to dog bite - Discharge Information *PRESCRIPTION DRUG MONITORING PROGRAM REVIEWED*: Not Applicable *COPY OF PRESCRIPTION DRUG MONITORING REPORT IN PATIENT TERE: Not Applicable Instructions: Animal Bite, Adult, [id number] Referrals: PCP,None [Primary Care Provider] - Additional Instructions: Clean the wound twice daily with soap and water. Dry. Apply antibiotic ointment and a new dressing. Recheck for signs if infection. Take augmentin as directed to reduce your risk of infection. Sepsis Event Note (ED) - Evaluation Sepsis Screening Result: No Definite Risk - Focused Exam Vital Signs: Vital Signs Temp Pulse Resp BP Pulse Ox 04/23/21 21:45 36.4 C 90 16 134/81 100 04/23/21 21:38 36.4 C 90 16 134/81 100 - My Orders Last 24 Hours: My Active Orders 04/23/21 21:50 Amoxicillin/Clavulanate K [Augmentin 875 MG/125 MG] 1 tab PO ONETIME ONE Bacitracin [Bacitracin Oint 1 GM] 1 dose TOP ONETIME ONE - Assessment/Plan Last 24 Hours: My Active Orders 04/23/21 21:50 Amoxicillin/Clavulanate K [Augmentin 875 MG/125 MG] 1 tab PO ONETIME ONE Bacitracin [Bacitracin Oint 1 GM] 1 dose TOP ONETIME ONE
== END 2021-04-23 22:12 | disposition home or self-care (01) ==
LOC: JP.ED 21:23
DX: S41.052A Open bite of left shoulder, initial encounter (principal); Z72.0 Tobacco use; W54.0XXA Bitten by dog, initial encounter
CPT/HCPCS: 99283; A9270